=== PATIENT | female | born 1970 | race Caucasian/White ===

== ENCOUNTER → 2018-09-29 | Outpatient (CLI) | payer OTHER, SELFPAY ==
[2016-06-19 11:48] VITALS: BMI 45.3
[2018-09-29 16:21] LABS: Free T3 4.7 pg/mL (2.18-3.98)
== END | disposition home or self-care (01) ==
PROVIDERS: Family Provider Family Medicine; PCP Family Medicine
DX: E03.9 Hypothyroidism, unspecified (principal)
CPT/HCPCS: 36415; 84481